=== PATIENT | female | born 1955 | race African-American/Black ===

== ENCOUNTER 2016-11-22 16:49 | Emergency (ER) | payer BC, OTHER ==
[~2016-11-22] VITALS: Ht 160 cm; Wt 92.1 kg
[~2016-11-22 16:49] MED LIST: AMBIEN 5 MG TABL5 M1 PO; AMITRIPTYLINE H25 M2 PO; ATIVAN1 MG PO; CRESTOR5 MG PO; FLOMAX0.4 MG PO; GLIPIZIDE5 MG PO; GLUCOPHAGE1000 MG PO; GLUMETZA500; GLYBURIDE 3 MG M3 M1; GLYBURIDE 5 MG T5 M1 PO; GLYBURIDE 5 MG T5 MG PO; HYDROCODONE-AP1 EAC6 PO; IBUPROFEN 800800 MG PO; INDOMETHACIN 2525 MG PO; KOMBIGLYZE XR1 EAC1; LISINOPRIL10 MG; LISINOPRIL20 MG PO; LYRICA 75 MG CA75 MG PO; NORCO 5-325 TA1 EACH PO; ONDANSETRON HCL4 M2 PO; PERCOCET 7.5-31 EACH PO; TEKTURNA300 MG; ULTRAM 50MG TAB50 MG PO; XANAX 0.5 MG0.5 M1 PO
[2016-11-22 18:13] LABS: ABSOLUTE NEUTROPHILS 3.3 thou/uL (1.4-8.2); EOSINOPHILS 1.6 % (0.0-3.0); HEMATOCRIT 35.4 % (37.0-47.0); HEMOGLOBIN 12.1 gm/dL (12.0-15.0); LYMPHOCYTES 41.6 % (24.0-44.0); MANUAL DIFF NO; MCH 31.4 pg (26.0-34.0); MCHC 34.3 g/dL (28.0-37.0); MCV 91.6 fL (80.0-100.0); MONOCYTES 6.2 % (1.0-8.0); PLATELET COUNT 305 thou/uL (150-400); POLYS 49.6 % (36.0-66.0); RBC 3.86 mil/uL (4.20-5.00); RDW 14.2 % (10.5-14.5); WBC 6.7 thou/uL (4.0-11.0)
[2016-11-22 18:19] LABS: CALCIUM 8.9 mg/dL (8.5-10.1); CREATININE 0.9 mg/dL (0.6-1.0); POTASSIUM 4.4 mmol/L (3.5-5.1)
[2016-11-22 18:24] LABS: ALBUMIN 3.4 g/dL (3.4-5.0); TOTAL BILIRUBIN 0.2 mg/dL (<0.1-1.0); TOTAL PROTEIN 7.2 g/dL (6.4-8.2)
[2016-11-22 19:11] LABS: URINE BILIRUBIN NEGATIVE (Negative); URINE BLOOD TRACE (Negative); URINE COLOR YELLOW; URINE GLUCOSE-RANDOM* NEGATIVE (Negative); URINE KETONES NEGATIVE (Negative); URINE NITRITE NEGATIVE (Negative); URINE PROTEIN (DIPSTICK) NEGATIVE (Negative); URINE SPECIFIC GRAVITY <= 1.005 (1.003-1.035); URINE UROBILINOGEN 0.2 E.U./dl (0.2-1.0)
[2016-11-22] MEDS ORDERED: NORCO 5-325 TA1 EACH PO (19:54)
[2016-11-22] MEDS ORDERED: CIPRO500 MG PO (19:54)
[2016-11-22 20:11] VITALS: BP 121/89
== END 2016-11-22 20:11 | disposition home or self-care (01) ==
LOC: ER 16:49
PROVIDERS: Nurse Practitioner Family
DX: R31.9 Hematuria, unspecified (principal); N94.89 Other specified conditions associated with female genital organs and menstrual cycle; G62.9 Polyneuropathy, unspecified; I10 Essential (primary) hypertension; Z90.710 Acquired absence of both cervix and uterus; Z88.8 Allergy status to other drugs, medicaments and biological substances

== ENCOUNTER 2016-12-11 13:38 | Emergency (ER) | payer BC, OTHER ==
[~2016-12-11] VITALS: Ht 157.5 cm; Wt 92.1 kg
[~2016-12-11 13:38] MED LIST changes: +CIPRO500 MG PO
[2016-12-11] MEDS ORDERED: PERCOCET 5-3251 EACH PO (14:45)
[2016-12-11 15:01] VITALS: BP 130/87
== END 2016-12-11 15:02 | disposition home or self-care (01) ==
LOC: ER 13:38
DX: M25.561 Pain in right knee (principal); M25.562 Pain in left knee; Z76.0 Encounter for issue of repeat prescription; I10 Essential (primary) hypertension; Z90.710 Acquired absence of both cervix and uterus; G89.29 Other chronic pain; Z98.890 Other specified postprocedural states; Z88.8 Allergy status to other drugs, medicaments and biological substances

== ENCOUNTER 2017-02-07 09:01 | Emergency (ER) | payer BC, OTHER ==
[~2017-02-07] VITALS: Ht 157.5 cm; Wt 92.1 kg
[~2017-02-07 09:01] MED LIST changes: +PERCOCET 5-3251 EACH PO
[2017-02-07] MEDS ORDERED: PERCOCET 5-3251 EACH PO (10:18)
[2017-02-07 11:44] VITALS: BP 141/96
== END 2017-02-07 11:46 | disposition home or self-care (01) ==
LOC: ER 09:01
DX: G89.29 Other chronic pain (principal); M25.551 Pain in right hip; M25.561 Pain in right knee; I10 Essential (primary) hypertension; Z90.710 Acquired absence of both cervix and uterus; Z98.890 Other specified postprocedural states; Z88.5 Allergy status to narcotic agent

== ENCOUNTER 2017-02-10 14:00 | Emergency (ER) | payer BC, OTHER ==
[~2017-02-10] VITALS: Ht 160 cm; Wt 92.1 kg
[2017-02-10] MEDS ORDERED: MOBIC15 MG PO (15:43)
[2017-02-10] MEDS ORDERED: VOLTAREN GEL 1100 G2 TOP (15:47)
[2017-02-10] MEDS ORDERED: OXYCODON-ACETA1 EAC1 PO (15:48)
[2017-02-10 15:56] VITALS: BP 125/85
== END 2017-02-10 16:31 | disposition home or self-care (01) ==
LOC: ER 14:00
DX: M25.551 Pain in right hip (principal); G89.29 Other chronic pain; M54.5 Low back pain; I10 Essential (primary) hypertension; G62.9 Polyneuropathy, unspecified; Z90.710 Acquired absence of both cervix and uterus; Z88.6 Allergy status to analgesic agent

== ENCOUNTER 2021-07-19 18:58 | Emergency (ER) | payer OTHER ==
[~2021-07-19] VITALS: Ht 165.1 cm; Wt 103.4 kg
[~2021-07-19 18:58] MED LIST changes: +MOBIC15 MG PO; +OXYCODON-ACETA1 EAC1 PO; +VOLTAREN GEL 1100 G2 TOP
[2021-07-19 21:08] VITALS: BP 150/103
== END 2021-07-19 21:10 | disposition home or self-care (01) ==
LOC: ER 18:58
DX: S16.1XXA Strain of muscle, fascia and tendon at neck level, initial encounter (principal); S09.90XA Unspecified injury of head, initial encounter; I10 Essential (primary) hypertension; G62.9 Polyneuropathy, unspecified; Z90.710 Acquired absence of both cervix and uterus; Z98.890 Other specified postprocedural states; Z79.899 Other long term (current) drug therapy; Z88.8 Allergy status to other drugs, medicaments and biological substances; W01.0XXA Fall on same level from slipping, tripping and stumbling without subsequent striking against object, initial encounter; Y93.89 Activity, other specified; Y92.89 Other specified places as the place of occurrence of the external cause; Y99.8 Other external cause status